=== PATIENT | female | born 1995 | race Caucasian/White ===

== ENCOUNTER 2022-01-16 23:07 | Emergency (ER) | payer OTHER ==
[~2022-01-16] VITALS: Ht 154.9 cm; Wt 113.4 kg
== END 2022-01-17 02:19 | disposition home or self-care (01) ==
LOC: ER 23:07
DX: F12.929 Cannabis use, unspecified with intoxication, unspecified (principal); E11.9 Type 2 diabetes mellitus without complications
CPT/HCPCS: 96374; 99284; J1630; J7030